=== PATIENT | male | born 1980 | race Hispanic/Latino ===

== ENCOUNTER 2018-02-03 13:36 | Emergency (ER) | payer MEDICAID ==
[2018-02-03 13:42] VITALS: BP 128/71; PULSE 80; RESP 16; TEMP 98.6; O2SAT 99
--- NOTE | 2018-02-03 13:55 | C.PDOC ---
History Of Present Illness 37 year old male presents to the emergency department with complaints of right arm pain persisting for the last two weeks. Patient reports that the pain started two weeks ago, and that it radiates to the back of his neck and radiates down his right arm. Patient reports that he was seen by his doctor twice for these symptoms. The first time, he was given Naproxen and the second time he was given a "shot for pain" and a prescription for Tramadol. Patient states that his pain still persists, and is worse with strenuous movements. Patient states that his job requires heavy lifting, and he often lifts 100lb boxes which make the pain worse. Patient denies direct injury and numbness. Time Seen by Provider: 02/03/18 13:47 Chief Complaint (Nursing): Upper Extremity Problem/Injury History Per: Patient History/Exam Limitations: no limitations Onset/Duration Of Symptoms: Other (two weeks) Current Symptoms Are (Timing): Still Present Quality: "Pain" Exacerbating Factor(s): Strenuous Use Of Affected Area, Movement Past Medical History Reviewed: Historical Data, Nursing Documentation, Vital Signs Vital Signs: Last Vital Signs Temp 98.6 F 02/03/18 13:39 Pulse 80 02/03/18 13:39 Resp 16 02/03/18 13:39 BP 128/71 02/03/18 13:39 Pulse Ox 99 02/03/18 17:39 - Medical History PMH: Asthma Surgical History: No Surg Hx Family History: States: No Known Family Hx - Social History Hx Alcohol Use: No Hx Substance Use: No - Immunization History Hx Tetanus Toxoid Vaccination: No Hx Influenza Vaccination: No Hx Pneumococcal Vaccination: No Review Of Systems Musculoskeletal: Positive for: Neck Pain, Shoulder Pain (right), Arm Pain (right ) Neurological: Negative for: Numbness Physical Exam - Physical Exam Appears: Non-toxic, Other (appears uncomfortable) Skin: Warm, Dry, No Rash Head: Atraumatic, Normacephalic Eye(s): bilateral: Normal Inspection Nose: Normal Neck: Normal ROM, No Midline Cervical Tenderness, No Paracervical Tenderness, Supple Chest: Symmetrical Cardiovascular: Rhythm Regular, No Murmur Respiratory: Normal Breath Sounds, No Wheezing Extremity: Normal ROM, Tenderness (nonfocal tenderness to right shoulder, biceps forearm and wrist with normal ROM), No Deformity, No Swelling Extremity: Left: Atraumatic Pulses: Left Brachial: Normal, Right Brachial: Normal, Left Radial: Normal, Right Radial: Normal Neurological/Psych: Oriented x3, Normal Speech Gait: Steady ED Course And Treatment O2 Sat by Pulse Oximetry: 99 (RA) Pulse Ox Interpretation: Normal Medical Decision Making Medical Decision Making: Impression : Right arm pain NJRx Reviewed: 01/28/2018 TRAMADOL HCL 50 MG TABLET #60 Plan: Shoulder xray Percocet Arm sling Progress: Xray viewed by me showing no acute fracture or calcific tendonitis Patient reports pain is improving. Arm sling was applied. He was advised to follow up with with Dr Hall for further evaluation. Disposition Counseled Patient/Family Regarding: Studies Performed, Diagnosis, Need For Followup, Rx Given - Disposition Referrals: Hector Hall MD [Staff Provider] - Disposition: HOME/ ROUTINE Disposition Time: 14:20 Condition: STABLE Additional Instructions: Take Ibuprofen as needed for pain every 6-8 hours, with food to not upset stomach Take Percocet for more severe pain as needed Follow up with your primary physician for further care Prescriptions: Ibuprofen [Motrin] 600 mg PO Q8 #30 tab oxyCODONE/Acetaminophen [Percocet 5/325 mg Tab] 1 tab PO Q8 PRN #6 tab PRN Reason: Pain, Severe (8-10) Instructions: Tendonitis (DC) Forms: [facility] (Yoruba), Work Excuse - POA Present On Arrival: None - Clinical Impression Clinical Impression: Arm pain, Tendonitis - PA / PAINTER DRUM / Resident Statement MD/DO has reviewed & agrees with the documentation as recorded. - Scribe Statement The provider has reviewed the documentation as recorded by the Scribe (Aniceto Jaramillo) All medical record entries made by the Scribe were at my direction and personally dictated by me. I have reviewed the chart and agree that the record accurately reflects my personal performance of the history, physical exam, medical decision making, and the department course for this patient. I have also personally directed, reviewed, and agree with the discharge instructions and disposition.
[2018-02-03] MEDS ORDERED: Oxycodone/Acetaminophen 5/325 mg Tab PO STA (13:56)
--- NOTE | 2018-02-03 14:05 | RAD ---
PROCEDURE: Radiographs of the Right Shoulder HISTORY: pain for 2 weeks COMPARISON: No prior. FINDINGS: BONES: No acute fracture or destructive bony lesion identified. JOINTS: Normal. Glenohumeral and acromioclavicular joints preserved. No osteoarthritis. SOFT TISSUES: Normal. OTHER FINDINGS: None. IMPRESSION: Unremarkable radiographs of the right shoulder.
[2018-02-03] MEDS ORDERED: Oxycodone/Acetaminophen 5/325 mg Tab ONE (14:06)
== END 2018-02-03 14:27 | disposition home or self-care (01) ==
LOC: C.ER 13:36
DX: M79.601 Pain in right arm (principal); M77.8 Other enthesopathies, not elsewhere classified

== ENCOUNTER 2018-02-17 17:57 | Emergency (ER) | payer MEDICAID ==
[2018-02-17 18:04] VITALS: BP 132/82; PULSE 80; TEMP 97.6; O2SAT 98
--- NOTE | 2018-02-17 18:24 | C.PDOC ---
History Of Present Illness 37 year old male presents to the ED c/o pain and swelling to his left middle finger. Patient is unsure of actual injury, however patient states he was playing with his cat. Patient has been taking Motrin and Gabapentin for pain. Patient denies injury, fall, trauma, weakness, numbness. Time Seen by Provider: 02/17/18 18:07 Chief Complaint (Nursing): Finger,Hand,&Wrist History Per: Patient History/Exam Limitations: no limitations Onset/Duration Of Symptoms: Days Current Symptoms Are (Timing): Still Present Quality: "Pain" Exacerbating Factor(s): Movement Recent travel outside of the [place] States: No Additional History Per: Patient Past Medical History Reviewed: Historical Data, Nursing Documentation, Vital Signs Vital Signs: Last Vital Signs Temp 97.6 F 02/17/18 18:01 Pulse 80 02/17/18 18:01 Resp 20 02/17/18 18:01 BP 132/82 02/17/18 18:01 Pulse Ox 98 02/17/18 18:26 - Medical History PMH: Asthma Surgical History: No Surg Hx Family History: States: Unknown Family Hx - Social History Hx Alcohol Use: No Hx Substance Use: No - Immunization History Hx Tetanus Toxoid Vaccination: No Hx Influenza Vaccination: No Hx Pneumococcal Vaccination: No Review Of Systems Constitutional: Negative for: Fever, Chills Cardiovascular: Negative for: Chest Pain Respiratory: Negative for: Shortness of Breath Gastrointestinal: Negative for: Nausea, Vomiting Musculoskeletal: Positive for: Hand Pain Skin: Negative for: Rash Physical Exam - Physical Exam Appears: Non-toxic, No Acute Distress Skin: Normal Color, Warm, Dry Head: Atraumatic, Normacephalic Eye(s): bilateral: Normal Inspection Oral Mucosa: Moist Neck: Normal ROM, Supple Extremity: No Normal ROM (decreased at [id number] PIP. other digits normal ROM), Tenderness (left 3rd PIP), Capillary Refill (< 2 seconds), Swelling (left 3rd PIP) Extremity: Bilateral: Normal Color And Temperature Pulses: Left Radial: Normal, Right Radial: Normal Neurological/Psych: Oriented x3, Normal Speech, Normal Motor, Normal Sensation Gait: Steady ED Course And Treatment O2 Sat by Pulse Oximetry: 98 (ON RA) Pulse Ox Interpretation: Normal Medical Decision Making Medical Decision Making: Impression: left hand pain, middle finger Plan: * Ultram 50 mg PO * Left hand X-ray Xray viewed by me showing no acute fracture, dislocation or other abnormality Aluminum finger splint applied by me Patient advise to rest ice and take NSAID for pain. Disposition Counseled Patient/Family Regarding: Diagnosis, Need For Followup, Rx Given - Disposition Referrals: Ramon Perez III, MD [Staff Provider] - Disposition: HOME/ ROUTINE Disposition Time: 18:35 Condition: GOOD Additional Instructions: Your x-ray was normal, no fracture. Please apply ice to area 15 minutes three times a day. Take naproxen or anti-inflammatory medication as needed. Follow up with orthopedic if pain persists over one week. Prescriptions: Naproxen [Naprosyn] 1 tab PO BID PRN #25 tab PRN Reason: Pain Instructions: Foot Sprain (ED) Forms: [facility] (Divehi) - POA Present On Arrival: None - Clinical Impression Clinical Impression: Strain of finger of left hand - PA / PATHOLOGY LABORATORY AIDE / Resident Statement MD/DO has reviewed & agrees with the documentation as recorded. - Scribe Statement The provider has reviewed the documentation as recorded by the Scribe Aaron Anthony All medical record entries made by the Scribe were at my direction and personally dictated by me. I have reviewed the chart and agree that the record accurately reflects my personal performance of the history, physical exam, medical decision making, and the department course for this patient. I have also personally directed, reviewed, and agree with the discharge instructions and disposition.
[2018-02-17 18:43] VITALS: RESP 16
--- NOTE | 2018-02-18 08:31 | RAD ---
PROCEDURE: Left middle finger radiographs. HISTORY: pain and swelling PIP COMPARISON: None. TECHNIQUE: AP radiograph of the left hand, as well as spot oblique and lateral images of left middle finger were obtained. FINDINGS: LEFT MIDDLE FINGER: Left middle finger normal, without acute displaced fracture of focal lesion. Remainder of the left hand (as seen on the AP view) is grossly unremarkable. JOINTS: Normal. SOFT TISSUES: There is mild soft tissue swelling in the 3rd digit. OTHER FINDINGS: None. IMPRESSION: No acute fracture or dislocation.
== END 2018-02-17 18:42 | disposition home or self-care (01) ==
LOC: C.ER 17:57
DX: S66.313A Strain of extensor muscle, fascia and tendon of left middle finger at wrist and hand level, initial encounter (principal); X58.XXXA Exposure to other specified factors, initial encounter; Y92.9 Unspecified place or not applicable